=== PATIENT | male | born 1995 | race Caucasian/White ===

== ENCOUNTER 2018-03-11 10:11 | Emergency (ER) | payer OTHER ==
[2018-03-11] MEDS: IBUPROFEN 800 MG TAB PO (12:59)
== END 2018-03-11 13:24 | disposition home or self-care (01) ==
LOC: FTE 10:11
DX: S99.911A Unspecified injury of right ankle, initial encounter (principal); S99.921A Unspecified injury of right foot, initial encounter; X58.XXXA Exposure to other specified factors, initial encounter; Y92.310 Basketball court as the place of occurrence of the external cause
CPT/HCPCS: 73590; 73610-RT; 73630; 99283-25